=== PATIENT | male | born 1960 | race Caucasian/White ===

== ENCOUNTER 2018-11-04 08:59 | Emergency (ER) | payer MEDICAID ==
[~2018-11-04] VITALS: Ht 162.6 cm; Wt 102.5 kg
[~2018-11-04 08:59] MED LIST: GLU500 PO; VAS2.5 PO
[2018-11-04 09:07] VITALS: BP 152/95
--- NOTE | 2018-11-04 09:12 | NUR ---
Patient ambulated to bed 11. RN evaluating patient at bedside.
--- NOTE | 2018-11-04 09:26 | NUR ---
PT BIB SELF C/O SOB X1 HOUR. PT REPORTS SOB STARTED WHEN HE WOKE UP THIS MORNING AND STATES HE IS UNDER STRESS. RR EVEN, NON-LABORED, O2 SAT 100% ON RA, BREATH SOUNDS CLEAR THROUGHOUT, CAP REFIL <2 SEX, AAOX4. PT DENEIS PAIN, N/V, FEVER, OR COUGH. PT SMOKED PACK PER DAY, QUIT 7 YEARS AGO. VSS. ER MD TO SEE PT. MEDHX: DM, HTN, HIGH CHOLESTOROL, ANXIETY
[2018-11-04] MEDS ORDERED: ALBUTEROL 0.083% 2.5 MG/3 ML NEBU INH ONE (09:40)
--- NOTE | 2018-11-04 09:42 | NUR ---
Breathing treatment administered at bedside by respiratory therapist.
--- NOTE | 2018-11-04 09:43 | NUR ---
[facility] THERAPY AND RESPIRATORY DRUG GIVEN ORDERED ENCOURAGED PATIENT FOR INTERMITENT DEEP BREATHING DURING THERAPY
--- NOTE | 2018-11-04 09:51 | NUR ---
X-RAY AT BEDSIDE.
--- NOTE | 2018-11-04 10:08 | NUR ---
EMT PERFROMING ECG AT BEDSIDE AT THIS TIME
--- NOTE | 2018-11-04 10:18 | NUR ---
PT DENIES SOB OR PAIN AT THIS TIME. PT STATES HE FEELS LIKE HIS ARMS ARE SHAKEY, NO VISBLE SIGNS OF TREMORS. VSS.
[2018-11-04 11:15] VITALS: BP 127/72
== END 2018-11-04 12:15 | disposition home or self-care (01) ==
LOC: MED 08:59
DX: J06.9 Acute upper respiratory infection, unspecified (principal); F41.9 Anxiety disorder, unspecified; E11.9 Type 2 diabetes mellitus without complications; I10 Essential (primary) hypertension; Z79.84 Long term (current) use of oral hypoglycemic drugs; Z79.899 Other long term (current) drug therapy
CPT/HCPCS: 71045; 82948; 93005; 94640; 99283; J7613; Q0092